=== PATIENT | male | born 1990 | race Caucasian/White ===

== ENCOUNTER 2019-06-18 11:01 | Emergency (ER) | payer OTHER ==
[~2019-06-18] VITALS: Ht 182.9 cm; Wt 94.6 kg
[2019-06-18 11:01] VITALS: BP 130/60
[2019-06-18] MEDS ORDERED: TETRACAINE 0.5% OPHTH SOLN 4ML OS ONE (11:30)
[2019-06-18] MEDS ORDERED: FLUORESCEIN OPHTH 1 MG STRIP OS ONE (11:30)
[2019-06-18] MEDS ORDERED: CIPR0.3S OS (11:55)
[2019-06-18] MEDS ORDERED: ACUL0.5S OP (11:55)
[2019-06-18] MEDS ORDERED: KETOROLAC 0.5% OPHTH SOLN OS ONE (12:00)
[2019-06-18] MEDS ORDERED: CIPROFLOXACIN 0.3% OPHTH SOLN 2.5ML OS ONE (12:00)
== END 2019-06-18 12:03 | disposition home or self-care (01) ==
LOC: M ED 11:01
DX: S05.02XA Injury of conjunctiva and corneal abrasion without foreign body, left eye, initial encounter (principal); X58.XXXA Exposure to other specified factors, initial encounter; Y92.9 Unspecified place or not applicable; Y93.9 Activity, unspecified; Y99.9 Unspecified external cause status